=== PATIENT | male | born 1985 | race Caucasian/White ===

== ENCOUNTER 2018-04-07 14:39 | Emergency (ER) | payer OTHER ==
[~2018-04-07] VITALS: Ht 175.3 cm; Wt 52.2 kg
[~2018-04-07 14:39] MED LIST: BENZ2TAB27 PO; DIVA250T PO; FAMO-90 PO; KEP500 PO; METO50TE PO; RISP2TAB PO; SERT100T PO; TRAZ-289 PO; [UNRECOGNIZED DRUG - CODE] TP
[2018-04-07 14:44] VITALS: BP 103/71
--- NOTE | 2018-04-07 14:48 | NUR ---
WHEEL CHAIR ASSISTED BY MILL ROLL OPERATOR TO BED 1
--- NOTE | 2018-04-07 15:00 | NUR ---
ASSUMED CARE OF PT AT THIS TIME. C/O INTERMITTENT N/V X 6 DAYS. SKIN IS PALE/WARM/DRY; LUNGS CLEAR BL; HR EVEN AND REGULAR; PT DENIES ANY FEVER, CP, SOB, OR COUGH AT THIS TIME; PATIENT STATES PAIN OF 1/10 AT THIS TIME; VSS; PATIENT POSITIONED FOR COMFORT; HOB ELEVATED; BEDRAILS UP X2; BED DOWN. ER MD MADE AWARE OF PT STATUS. WILL CONTINUE TO MONITOR.
[2018-04-07 16:26] LABS: BASOPHILS % (AUTO) 0.3 % (0.0-2.0); EOSINOPHILS # (AUTO) 0.3 K/uL (0-0.4); EOSINOPHILS % (AUTO) 3.2 % (0.0-4.0); HEMATOCRIT 42.3 % (36-52); HEMOGLOBIN 14.3 g/dL (12.0-18.0); LYMPHOCYTES # (AUTO) 1.2 K/uL (2.0-11.5); LYMPHOCYTES % (AUTO) 11.4 % (20.5-51.1); MEAN CORPUSCULAR HEMOGLOBIN 32 pg (27-31); MEAN CORPUSCULAR HGB CONC 34 g/dL (33-37); MEAN CORPUSCULAR VOLUME 94.1 fL (80-94); MONOCYTES % (AUTO) 9.5 % (1.7-9.3); NEUTROPHILS # (AUTO) 8.2 K/uL (1.8-7.7); NEUTROPHILS % (AUTO) 75.6 % (42.2-75.2); PLATELET COUNT (AUTO) 196 K/uL (140-450); RED BLOOD CELL COUNT(AUTO) 4.49 MIL/uL (4.20-6.10); RED CELL DISTRIBUTION WIDTH 13.1 % (11.6-13.7); WHITE BLOOD COUNT (AUTO) 10.8 K/uL (4.8-10.8)
[2018-04-07 16:35] LABS: ANION GAP 11.9 (8-16); CARBON DIOXIDE 31.4 mmol/L (21-32); CREATININE 0.9 mg/dL (0.7-1.3); POTASSIUM 4.3 mmol/L (3.5-5.1)
[2018-04-07 16:41] LABS: ALBUMIN 3.6 g/dL (3.4-5.0); TOTAL BILIRUBIN 0.6 mg/dL (0.0-1.0)
[2018-04-07 19:10] VITALS: BP 130/86
--- NOTE | 2018-04-07 19:10 | NUR ---
Patient discharged with v/s stable. Written and verbal after care instructions given and explained. Patient alert, oriented and verbalized understanding of instructions. Wheel Chair Assisted with by caregiver. All questions addressed prior to discharge. ID band removed. Patient advised to follow up with PMD. Rx of ZOFRAN, PROMETHAZINE, AND AZITHROMYCIN given. Patient educated on indication of medication including possible reaction and side effects. Opportunity to ask questions provided and answered.
== END 2018-04-07 19:10 | disposition home or self-care (01) ==
LOC: MED 14:39
DX: A08.4 Viral intestinal infection, unspecified (principal); J06.9 Acute upper respiratory infection, unspecified
CPT/HCPCS: 36415; 71045; 80053; 85025; 87804; 99285; Q0092

== ENCOUNTER 2019-01-21 10:01 | Inpatient (IN) | payer OTHER ==
[2019-01-21] VITALS (46 sets, daily range): BP systolic 33–164; BP diastolic 19–108
[~2019-01-21] VITALS: Ht 175.3 cm; Wt 64.9 kg
[~2019-01-21 10:01] MED LIST changes: -TRAZ-289 PO; +TRAZ100T99 PO
--- NOTE | 2019-01-21 10:06 | NUR ---
PT TAKEN TO BED 5 VIA WHEELCHAIR
--- NOTE | 2019-01-21 10:10 | NUR ---
DR. JONES AT BEDSIDE TO INSERT CENTRAL LINE, YANELI FROM ULTRASOUND ALSO PRESENT AT BEDSIDE TO BEGIN PROCEDURE. Addendum: 01/21/19 at 2237 by Kaci Garcia RN INCORRECT TIME ENTRY, CORRECT TIME 2210.
--- NOTE | 2019-01-21 10:21 | NUR ---
BIB SELLING SPECIALIST FROM [facility] WITH C/O COUGH AND SOB SINCE MONDAY, WORSENING TODAY. VSS; PATIENT POSITIONED FOR COMFORT; HOB ELEVATED; BEDRAILS UP X2; BED DOWN. ER MD MADE AWARE OF PT STATUS.
--- NOTE | 2019-01-21 11:06 | NUR ---
Patient being evaluated by physician at bedside.
[2019-01-21] MEDS ORDERED: NACL 0.9% 500 ML IV SCH (11:07)
--- NOTE | 2019-01-21 11:07 | NUR ---
CALLED RT FOR TREATMENT AND ABG
[2019-01-21] MEDS ORDERED: ALBUTEROL 0.083% 2.5 MG/3 ML NEBU INH ONE ×2 (11:10→11:40)
[2019-01-21] MEDS ORDERED: IPRATROPIUM 0.02% 0.5 MG/2.5 ML NEBU INH ONE (11:10)
--- NOTE | 2019-01-21 11:53 | NUR ---
XRAY AT BEDSIDE
[2019-01-21] MEDS ORDERED: PIPERACILLIN/TAZOBACTAM 3.375 GM in DEXTROSE 5% 50 ML IV ONE (12:05)
[2019-01-21] MEDS ORDERED: VANCOMYCIN 1,000 MG in DEXTROSE 5% 250 ML IV ONE (12:05)
[2019-01-21 12:10] LABS: EOSINOPHILS % (AUTO) 0.1 % (0.0-4.0); LYMPHOCYTES # (AUTO) 0.2 K/uL (2.0-11.5); LYMPHOCYTES % (AUTO) 2.7 % (20.5-51.1); MEAN CORPUSCULAR HEMOGLOBIN 31 pg (27-31); MEAN CORPUSCULAR HGB CONC 33 g/dL (33-37); MEAN CORPUSCULAR VOLUME 93.9 fL (80-94); MONOCYTES # (AUTO) 0.3 K/uL (0.8-1.0); NEUTROPHILS # (AUTO) 8.5 K/uL (1.8-7.7); NEUTROPHILS % (AUTO) 94.2 % (42.2-75.2); PLATELET COUNT (AUTO) 85 K/uL (140-450); RED BLOOD CELL COUNT(AUTO) 4.47 MIL/uL (4.20-6.10); RED CELL DISTRIBUTION WIDTH 13.5 % (11.6-13.7)
[2019-01-21 12:13] LABS: PROTHROMBIN TIME 11.2 secs (10.8-13.4)
[2019-01-21] MEDS ORDERED: NACL 0.9% 1,000 ML IV SCH ×3 (12:16→14:55)
[2019-01-21] MEDS ORDERED: HYDROcodone/APAP 5/325 MG 1 TAB TAB PO PRN (12:20)
[2019-01-21] MEDS ORDERED: ACETAMINOPHEN 325 MG TAB PO PRN (12:20)
[2019-01-21] MEDS ORDERED: ALBUTEROL 0.083% 2.5 MG/3 ML NEBU IH PRN (12:20)
[2019-01-21] MEDS ORDERED: ONDANSETRON 4 MG/2 ML VIAL IVP PRN (12:20)
[2019-01-21] MEDS ORDERED: VANCOMYCIN PER PHARMACY MC PRN (12:20)
[2019-01-21] MEDS ORDERED: MORPHINE SULFATE 2 MG/ML SYR IVP PRN (12:20)
[2019-01-21] MEDS ORDERED: LORazepam 2 MG/ML VIAL IVP PRN (12:20)
[2019-01-21 12:29] LABS: BILIRUBIN,URINE NEGATIVE (NEGATIVE); BLOOD, URINE NEGATIVE (NEGATIVE); UGLUCOSE NEGATIVE (NEGATIVE)
[2019-01-21 12:30] LABS: ALBUMIN 2.7 g/dL (3.4-5.0); ANION GAP 13.2 (8-16); CARBON DIOXIDE 30.1 mmol/L (21-32); CREATININE 1.1 mg/dL (0.7-1.3); POTASSIUM 3.3 mmol/L (3.5-5.1); TOTAL BILIRUBIN 0.3 mg/dL (0.0-1.0)
[2019-01-21 12:30] LABS: COLOR,URINE ORANGE (YELLOW)
[2019-01-21 12:36] LABS: NITRITE, URINE NEGATIVE (NEGATIVE)
[2019-01-21 12:37] LABS: RBC,URINE 0-5 (RARE) /HPF (0-5)
[2019-01-21 12:38] LABS: APPEARANCE,URINE SLIGHTLY HAZY (CLEAR)
[2019-01-21 12:39] LABS: HYALINE CASTS, URINE 0-10 /LPF (None Seen); LEUKOCYTE ESTERASE ,URINE 1+ (NEGATIVE)
[2019-01-21] MEDS ORDERED: PIPERACILLIN/TAZOBACTAM 3.375 GM VIAL IV ONE (12:40)
[2019-01-21] MEDS ORDERED: VANCOMYCIN 1,000 MG VIAL ONE (12:41)
[2019-01-21] MEDS ORDERED: methylPREDNISolone SS 125 MG/2 ML VIAL IVP SCH (13:16)
--- NOTE | 2019-01-21 13:22 | NUR ---
SPOKE TO PAM, CHARGE NURSE RE: BP 70/37 AND LACTIC ACID 4.1 NURSE PAM WILL NOTIFY DR. SALEEM WHO IS ICU RIGHT NOW BUT IS ON THE PHONE. PRIMARY NURSE JOBANA AWARE
--- NOTE | 2019-01-21 13:33 | NUR ---
PT TAKEN TO ICU BY RN KENYETTA, EMT DONNA, AND RT STAFF
--- NOTE | 2019-01-21 13:35 | NUR ---
PT TRANSFERRED FROM ER TO ICU. PT IS NONVERBAL, UNABLE TO FOLLOW COMMANDS. SINUS RHYTHM ON MONITOR. PT IS ON BIPAP 10/5, FIO2 100%, CRACKLES AUSCULTATED BILATERALLY. BREATHING EVEN, LABORED. ABD SOFT, NONDISTENDED W/ ACTIVE BOWEL SOUNDS. PERIPHERAL IV G20 TO LEFT FOREARM PATENT AND INTACT. PT IS RECEIVING VANCOMYCIN AT 165ML/HR UPON ARRIVAL. SKIN IS INTACT, DRY AND COOL TO TOUCH. HOB 30 DEGREES, BED IN LOWEST POSITION AND CALL LIGHT WITHIN REACH. SAFETY PRECAUTIONS IN PLACE. FLACC 0. WILL CONTINUE TO MONITOR.
--- NOTE | 2019-01-21 13:40 | NUR ---
Patient will be admitted to care of DR. SALEEM. Admited to ICU. Will go to room 2. Belongings list completed. Report to GAGE PEDERSEN.
--- NOTE | 2019-01-21 14:05 | NUR ---
PT INTUBATED BY DR. SALEEM AT BEDSIDE.
[2019-01-21] MEDS ORDERED: PROPOFOL 1000 MG/100 ML PREMIX 100 ML IV PRN (14:15)
--- NOTE | 2019-01-21 14:15 | NUR ---
NGT INSERTED. PLACEMENT CONFIRMED VIA AUSCULTATION.
[2019-01-21] MEDS ORDERED: NOREPINEPHRINE 4 MG/4 ML VIAL IV ONE ×2 (14:24→18:07)
--- NOTE | 2019-01-21 14:24 | NUR ---
LEVOPHED STARTED AT 5 MCG/KG/MIN.
--- NOTE | 2019-01-21 14:30 | NUR ---
HERNÁNDEZ CATH INSERTED. CLEAR, DARK YELLOW URINE NOTED, DRAINING TO GRAVITY.
--- NOTE | 2019-01-21 15:21 | NUR ---
PT ON AC/PC Pinsp 25, PEEP 14, FIO2 100% AND INSP TIME 0.80. ETT 7.5 SECURED @25 TEETH/GUMS. PT IS SEDATED AT THIS TIME TOLERATING VENT SETTINGS WELL. THERE IS NO BITING OR KINKING OF ETT. VENT IS PLUGGED INTO A RED OUTLET WITH ALARMS ON AND FUNCTIONING. WILL CONTINUE TO MONITOR.
--- NOTE | 2019-01-21 15:35 | NUR ---
RECEIVED FNS CONSULT FOR TUBE FEEDING. RECOMMENDATIONS OF JEVITY @65ML/HR WITH FREE WATER FLUSH 100 ML Q4H GIVEN TO RN. KAREN RODRIGUES RD
--- NOTE | 2019-01-21 15:44 | NUR ---
PAGED REGARDING CRITICAL ABG RESULTS. WAITING FOR CALL BACK.
[2019-01-21] MEDS: MIDAZOLAM 2 MG/2 ML VIAL IV PRN (15:45)
[2019-01-21] MEDS: LEVOFLOXACIN 750 MG/D5W PREMIX 150 ML IV SCH (16:52)
[2019-01-21] MEDS ORDERED: ETOMIDATE 20 MG/10 ML VIAL IVP SCH (16:55)
[2019-01-21] MEDS ORDERED: SUCCINYLCHOLINE CHLORIDE 200 MG/10 ML VIAL IVP SCH (16:56)
--- NOTE | 2019-01-21 17:24 | NUR ---
DR. SALEEM MADE AWARE OF PT'S DECREASED BLOOD PRESSURE DESPITE LEVOPHED BEING AT MAXIMUM RATE AND REPORTED ABG RESULTS. ORDERS RECEIVED.
[2019-01-21] MEDS ORDERED: SODIUM BICARBONATE 8.4% 100 MEQ in DEXTROSE 5% 1,000 ML IV SCH (17:25)
--- NOTE | 2019-01-21 17:30 | NUR ---
PT REMAINS ON DOCUMENTED VENT SETTINGS. ETT REMAINS SECURE WITH A PATENT AIRWAY. VENT ALARMS REMAIN ON AND FUNCTIONING. PT NOT IN ANY DISTRESS AT THIS TIME.
[2019-01-21] MEDS ORDERED: SODIUM BICARBONATE 8.4% PFS 50 MEQ/50 ML SYR IVP ONE (18:05)
[2019-01-21] MEDS ORDERED: EPINEPHrine PFS 0.1 MG/ML SYR IVP ONE ×2 (18:05→21:32)
[2019-01-21] MEDS ORDERED: DEXTROSE 50% 50 ML SYR IVP ONE (18:05)
[2019-01-21] MEDS ORDERED: CALCIUM CHLORIDE 10% 100 MG/ML SYR IVP ONE (18:05)
--- NOTE | 2019-01-21 18:05 | NUR ---
HR 31, PULSE NOT PALPABLE. CALLED CODE BLUE.
--- NOTE | 2019-01-21 18:07 | NUR ---
SECOND BAG LEVOPHED STARTED AT 30 MCG/MIN.
[2019-01-21] MEDS: ATROPINE 0.4 MG/ML VIAL IVP PRN ×4 (18:30→23:10)
[2019-01-21] MEDS: ALBUTEROL SULFATE/IPRATROPIU 3 ML SOL IH SCH (18:42)
[2019-01-21] MEDS: SODIUM BICARBONATE 8.4% 150 MEQ in DEXTROSE 5% 1,000 ML IV SCH (18:47)
[2019-01-21] MEDS: VASOPRESSIN 20 UNITS in NACL 0.9% 250 ML IV SCH (18:47)
[2019-01-21] MEDS: PIPERACILLIN/TAZOBACTAM 4.5 GM in DEXTROSE 5% 100 ML IV SCH (18:50)
[2019-01-21] MEDS: methylPREDNISolone SS 125 MG/2 ML VIAL IVP SCH (18:50)
--- NOTE | 2019-01-21 19:05 | NUR ---
Received pt coding at change of shift, pulse regained, suctioned scant amounts of thin yellow blood tinged secretions, hhn tx given, tolerated well, no resp distress or SOB noted at this time, alarms set and audible, ambu bag at bedside, vent plugged into red outlet, pulse ox on, will cont to monitor.
[2019-01-21] MEDS: PHENYLEPHRINE 10 MG in NACL 0.9% 250 ML IV PRN ×3 (19:06→23:46)
[2019-01-21] MEDS ORDERED: HYDROCORTISONE NA SUCC 100 MG/2 ML VIAL IV ONE (19:13)
--- NOTE | 2019-01-21 19:25 | NUR ---
HR 33. ATROPINE GIVEN ORDERED.
--- NOTE | 2019-01-21 19:30 | NUR ---
REPORT GIVEN TO PIPE ORGAN TUNER AND REPAIRER NURSE FOR CONTINUITY OF CARE. PT IS UNSTABLE AT THIS TIME.
--- NOTE | 2019-01-21 19:30 | NUR ---
RECEIVED BEDSIDE REPORT FROM MORNING SHIFT RNSASHA, FOR CONTINUITY OF CARE. PT IS ETT TO VENT, NONVERBAL. AFEBRILE, BP=46/28, SATING 69%, RR=18, KU=215. ON A/C PC TNW8=268%, Pinsp=25, Tinsp=.80, peep=14, PMAX =45. RIGHT FA 20 GAUGE, RIGHT WRIST 20 GAUGE, AND LEFT FA 20 GUAGUE, AND LEFT WRIST 18 GAUGE ARTERIAL LINE. INFUSING LEVOPHED AT 30MCG/MIN, VASOPRESSINAT 30ML/HR, PROPOFOL AT 9.3ML/R RASS-3 TO -4. SODIUM BICARB W/ D5 INFUSING AT 75ML/HR. Addendum: 01/22/19 at 0330 [address] Garcia RN ST ON CARIDAC MONITOR, NPO STATUS MAINTIANED, NGT IN PLACE. LUNG SOUNDS CLEAR ON AUSCULTATION, BOWEL SOUND HYPOACTIVE. HERNÁNDEZ REMAINS IN PLACE. SKIN IS NORMAL IN COLOR, COOL TO TOUCH. HOB ELEVATED, STANDARD, AND FALL RISK PRECAUTIONS MAINTAINED. Addendum: 01/22/19 at 0738 by Kaci Garcia RN DRY WEIGHT OF 57 KG FOR PROPOFOL DRIP. Addendum: 01/22/19 at 2202 by Kaci Garcia RN CORRECTION: DRY WEIGHT FOR PATIENT IS 62KG FOR PROPOFOL DRIP.
[2019-01-21] MEDS ORDERED: ATROPINE 1 MG/10 ML SYR IVP ONE ×2 (20:16→20:43)
--- NOTE | 2019-01-21 20:20 | NUR ---
10 ML ATROPINE GIVEN, HR 37-38. Addendum: 01/21/19 at 2024 by Kaci Garcia RN CORRECTION: 10ML = 1MG ATROPINE WAS GIVEN.
[2019-01-21] MEDS ORDERED: ATROPINE 0.4 MG/ML VIAL IVP ONE (20:41)
[2019-01-21] MEDS: levETIRAcetam 500 MG TAB PO SCH (21:00)
[2019-01-21] MEDS: traZODone 50 MG TAB PO SCH (21:00)
[2019-01-21] MEDS ORDERED: DIVALPROEX SODIUM 250 MG PO SCH (21:00)
[2019-01-21] MEDS: FAMOTIDINE 20 MG TAB PO SCH (21:00)
[2019-01-21] MEDS ORDERED: NON-FORMULARY ITEM (Trazodone HCl 100 MG) PO SCH (21:00)
[2019-01-21] MEDS ORDERED: METOPROLOL SUCCINATE 50 MG PO SCH (21:00)
[2019-01-21] MEDS: DIVALPROEX 250 MG TABEC PO SCH (21:00)
[2019-01-21] MEDS ORDERED: SERTRALINE 50 MG TAB PO SCH (21:00)
[2019-01-21] MEDS: METOPROLOL 50 MG TAB PO SCH (21:00)
[2019-01-21] MEDS: NOREPINEPHRINE 4 MG in DEXTROSE 5% 250 ML IV PRN (21:24)
[2019-01-21] MEDS ORDERED: EPINEPHrine 1:1000 - 1 MG/ML AMP ONE (21:30)
--- NOTE | 2019-01-21 22:10 | NUR ---
AT [facility], AND YANELI FROM ULTRASOUND AT BEDSIDE FOR CENTRAL LINE PLACEMENT. TIMEOUT COMPLETED.
--- NOTE | 2019-01-21 22:38 | NUR ---
XRAY AT BEDSIDE TO CHECK FOR CENTRAL LINE PLACEMENT.
--- NOTE | 2019-01-21 22:40 | NUR ---
PAGED DR. JONES REGARDS TO CENTRAL LINE PLACEMENT/XRAY COMPLETED
--- NOTE | 2019-01-21 23:00 | NUR ---
NEOSYNEPHRINE STOPPED AT THIS TIME, SD=229/65, SATING 72%, 22 RPM, HR=92.
--- NOTE | 2019-01-21 23:01 | NUR ---
DEENA WOLF AT BEDSIDE TO SEE PATIENT.
--- NOTE | 2019-01-21 23:03 | NUR ---
CALLED DR. STORM, UPDATED ON PT CONDITION AND CENTRAL LINE PLACEMENT. NEOSYNEPHRINE STOPPED AT THIS TIME, PT REMAINS ON LEVOPHED, PROPOFOL, AND VASPORESSIN, NPO STATUS MAINTAINED. INFORMED HELD ALL 2100 PO MEDS AT THIS TIME. DR. TUTTLE. NO NEW ORDERS AT THIST AR.
[2019-01-21] MEDS ORDERED: PHENYLEPHRINE 10 MG/ML VIAL ONE (23:35)
[2019-01-22] VITALS (71 sets, daily range): BP systolic 36–163; BP diastolic 23–78
[2019-01-22] MEDS: NOREPINEPHRINE 4 MG in DEXTROSE 5% 250 ML IV PRN ×5 (00:05→10:22)
--- NOTE | 2019-01-22 00:26 | NUR ---
PAGED DR. JONES TO CONFIRM CENTRAL LINE PLACEMENT/ RESULTS OF XRAY.
[2019-01-22] MEDS: ALBUTEROL SULFATE/IPRATROPIU 3 ML SOL IH SCH ×3 (01:11→12:54)
[2019-01-22] MEDS: PHENYLEPHRINE 10 MG in NACL 0.9% 250 ML IV PRN ×5 (01:25→08:12)
[2019-01-22] MEDS ORDERED: PHENYLEPHRINE 10 MG/ML VIAL ONE ×4 (01:26→06:58)
[2019-01-22] MEDS: HYDROCORTISONE NA SUCC 100 MG/2 ML VIAL IV SCH ×3 (01:30→11:51)
[2019-01-22] MEDS: methylPREDNISolone SS 125 MG/2 ML VIAL IVP SCH ×3 (01:31→11:51)
[2019-01-22] MEDS: PIPERACILLIN/TAZOBACTAM 4.5 GM in DEXTROSE 5% 100 ML IV SCH ×3 (01:31→11:53)
[2019-01-22] MEDS ORDERED: ATROPINE 1 MG/10 ML SYR IVP ONE ×2 (02:07→04:50)
[2019-01-22] MEDS: ATROPINE 0.4 MG/ML VIAL IVP PRN ×2 (02:08→04:46)
[2019-01-22] MEDS ORDERED: NOREPINEPHRINE 4 MG/4 ML VIAL IV ONE ×3 (02:36→07:53)
[2019-01-22] MEDS ORDERED: VASOPRESSIN 20 UNITS/ML VIAL ONE (02:44)
[2019-01-22] MEDS: VASOPRESSIN 20 UNITS in NACL 0.9% 250 ML IV SCH ×2 (02:54→11:50)
[2019-01-22] MEDS: EPINEPHrine 1:1000 (1 mg/mL) 1 MG in DEXTROSE 5% 250 ML IV SCH ×3 (03:01→09:04)
--- NOTE | 2019-01-22 03:23 | NUR ---
RIGHT IJ CENTRAL LINE IN PLACE WITH PRESSORS INFUSING: PT MAXED OUT ON NEOSYNEPHRINE, LEVOPHED AND VASOPRESSIN DRIPS, SODIUM BICARB&D5 IVF REMINAS INFUSING INTO RIGHT FOREARM 20 GAUGE PIV AT 75ML/HR. FAMILY NO LONGER AT BEDSIDE. PUPILS ENLARGED NOT REACTIVE TO LIGHT. EPINEPHRINE INFUSING AT 3MCG/MIN CURRENTLY. PROPFOL INFUSING TO RIGHT IJ AT 25MCG/KG/MIN. HR=80, ARTERIAL BP=66/55, LEFT ARM BP=53/55, RR=18, SATING AT 64%.
--- NOTE | 2019-01-22 06:18 | NUR ---
rec'd pt on carescape vent settings pc25 rr 18 peep 14 fio2 100% alarms on and audible ambu bag at side of vent and vent is plugged into red outlet, i\l tx given wit duoneb 3ml with no adverse reaction post tx b\s are clear bilaterally, sxn pt small amt of thick yellow secretions, pt is orally intubated with 7.5 et tube secured with anchor fast at 25cm @lip skin integrity is intact.
[2019-01-22] MEDS ORDERED: EPINEPHrine 1:1000 - 1 MG/ML AMP ONE (06:20)
[2019-01-22 06:25] LABS: BASOPHILS % (AUTO) 0.1 % (0.0-2.0); EOSINOPHILS % (AUTO) 0.3 % (0.0-4.0); HEMATOCRIT 37.5 % (36-52); HEMOGLOBIN 12.4 g/dL (12.0-18.0); LYMPHOCYTES # (AUTO) 0.7 K/uL (2.0-11.5); LYMPHOCYTES % (AUTO) 10.2 % (20.5-51.1); MEAN CORPUSCULAR HEMOGLOBIN 32 pg (27-31); MEAN CORPUSCULAR HGB CONC 33 g/dL (33-37); MONOCYTES # (AUTO) 0.5 K/uL (0.8-1.0); MONOCYTES % (AUTO) 6.7 % (1.7-9.3); NEUTROPHILS # (AUTO) 5.9 K/uL (1.8-7.7); NEUTROPHILS % (AUTO) 82.7 % (42.2-75.2); PLATELET COUNT (AUTO) 71 K/uL (140-450); RED BLOOD CELL COUNT(AUTO) 3.91 MIL/uL (4.20-6.10); RED CELL DISTRIBUTION WIDTH 13.9 % (11.6-13.7); WHITE BLOOD COUNT (AUTO) 7.2 K/uL (4.8-10.8)
[2019-01-22 06:37] LABS: ALBUMIN 1.4 g/dL (3.4-5.0); ANION GAP 21.5 (8-16); CARBON DIOXIDE 19.3 mmol/L (21-32); CREATININE 1.4 mg/dL (0.7-1.3); MAGNESIUM 1.5 mg/dL (1.8-2.4); TOTAL BILIRUBIN 0.6 mg/dL (0.0-1.0)
--- NOTE | 2019-01-22 07:20 | NUR ---
REPORT GIVEN TO MORNING RNPETER FOR CONTINUITY OF CARE.
--- NOTE | 2019-01-22 07:21 | NUR ---
RECEIVED PT REPORT AT BEDSIDE FROM WARP HAULER RN, PT IS SEDATED, RASS -5, DILATED EYES NOTED, TEMP 95.2F, BP 98/73, HR 81, R 18, O2 SAT 62%, ETT TO VENT WITH A/C PC SETTING FIO2 100, PEEP 14, R 18, CLEAR LUNG SOUNDS IRAM, SR ON SUPERVISOR [employer], WEAK PULSES TO EXTREMITIES, SOFT ABDOMEN WITH HYPOACTIVE BOWEL SOUNDS, NGT TO RIGHT NARES, POSITIVE PLACEMENT, >200ML RESIDUALS NOTED, NPO AT THIS TIME. F/C IN PLACE WITH CLEAR YELLOW URINE VIA GRAVITY, SKIN IS COOL AND PALE, INTACT, SEVERE WEAKNESS TO ALL EXTREMITIES, CENTRAL LINE TO RIJ, TLC, PATENT RUNNING VASOPRESSIN AT 0.04 UNIT/MIN, EPINEPHRINE AT 10 MCG/MIN, MARCE AT 150MCG/MIN, PROPOFOL AT 25 MCG/KG/MIN, AND LEVOPHED AT 30 MCG/MIN, PERIPHERAL LINE TO RIGHT FOREARM 20GA RUNNING BICAB AT 75ML/HR, IV TO LEFT FOREARM 18GA, RUNNING ANTIBIOTICS, NEERU AT LEFT WRIST 106/72. HOB ELEVATED 30 DEGREES, SAFETY MEASURES IN PLACE, ORAL CARE PROVIDED, POSITION CHANGED FOR OFF LOAD PRESSURE, WILL CONTINUE TO MONITOR. Addendum: 01/22/19 at 1653 by Carlos Martinez RN PT DRY WEIGHT IS 62KG.
[2019-01-22] MEDS ORDERED: VANCOMYCIN 500 MG in DEXTROSE 5% 100 ML IV SCH (08:00)
--- NOTE | 2019-01-22 08:00 | NUR ---
CALLED DR. HUNT TO GIVE ABG RESULTS ORDERED TO INCREASE RR TO 22 AND ABG AT 0600 NUVIA GREEN NOTIFIED OF CHANGES MADE TO VENT
--- NOTE | 2019-01-22 08:15 | NUR ---
IV SITE TO RIGHT FORARM INFILTRATED, AND REDNESS TO THE SITE, REMOVED, AND PLACED NEW IV SITE TO RIGHT SHOULDER, 20GA, PATENT AND SL.
--- NOTE | 2019-01-22 08:23 | NUR ---
PATIENT HAS BEEN SCREENED AND CATEGORIZED HIGH NUTRITION RISK. PATIENT WILL BE SEEN WITHIN 1-2 DAYS OF ADMISSION. 01/22/19-01/23/[address]
[2019-01-22] MEDS: SODIUM BICARBONATE 8.4% 150 MEQ in DEXTROSE 5% 1,000 ML IV SCH (08:50)
[2019-01-22] MEDS ORDERED: ASPIRIN 81 MG TAB.CHEW PO SCH (09:00)
[2019-01-22] MEDS ORDERED: risperiDONE 1 MG TAB PO SCH (09:00)
[2019-01-22] MEDS: METOPROLOL 50 MG TAB PO SCH (09:00)
[2019-01-22] MEDS ORDERED: BENZTROPINE 1 MG TAB PO SCH (09:00)
--- NOTE | 2019-01-22 09:00 | NUR ---
CASSANDRA RAZA PLACED ON PT TO KEEP PT WARM.
[2019-01-22 09:01] LABS: POTASSIUM 2.8 mmol/L (3.5-5.1)
[2019-01-22] MEDS ORDERED: POTASSIUM CHLORIDE 20% 40 MEQ/15 ML UDC GT SCH ×2 (09:03→13:00)
[2019-01-22] MEDS ORDERED: NOREPINEPHRINE 16 MG in DEXTROSE 5% 250 ML IV PRN (09:10)
[2019-01-22] MEDS ORDERED: PHENYLEPHRINE 40 MG in NACL 0.9% 250 ML IV PRN (09:10)
[2019-01-22] MEDS ORDERED: EPINEPHrine 1:1000 (1 mg/mL) 6 MG in DEXTROSE 5% 250 ML IV SCH (09:10)
[2019-01-22] MEDS: DIVALPROEX 250 MG TABEC PO SCH (09:13)
[2019-01-22] MEDS: levETIRAcetam 500 MG TAB PO SCH (09:13)
[2019-01-22] MEDS: FAMOTIDINE 20 MG TAB PO SCH (09:13)
[2019-01-22] MEDS: traZODone 50 MG TAB PO SCH (09:15)
[2019-01-22] MEDS: ENOXAPARIN 40 MG/0.4 ML SYR SUBQ SCH ×2 (09:17→09:24)
--- NOTE | 2019-01-22 09:20 | NUR ---
DR. SALEEM CAME IN TO SEE PT AT BEDSIDE, UPDATED PT'S CONDITION, WILL FOLLOW UP WITH NEW ORDERS.
--- NOTE | 2019-01-22 09:24 | NUR ---
METOPROLOL AND LOVENOX HELD DUE TO LOW BP AND LOW PLATELET, MD AWARE.
--- NOTE | 2019-01-22 10:00 | NUR ---
ARM AND LEG MOVEMENT NOTED, BUT UNABLE TO RESPOND TO PAINFUL STIMULI, STILL ON LEVOPHED, MARCE, VASOPRESSIN, AND EPI DRIP. POSITION CHANGED FOR OFF LOAD PRESSURE.
--- NOTE | 2019-01-22 11:00 | NUR ---
PT'S FATHER CALLED, ALTHOUGH PT IS ON DNR, BUT FATHER STILL WANT TO KEEP ALL THE MEDICATIONS UNTIL THEY COME TO HIM LATER. AWARE.
--- NOTE | 2019-01-22 11:12 | NUR ---
ECHO AND BOBBLE STUDY AT BEDSIDE.
[2019-01-22] MEDS ORDERED: POTASSIUM CHLORIDE 10 MEQ TABER PO ONE (12:00)
--- NOTE | 2019-01-22 12:00 | NUR ---
PT IS STILL UNRESPONSIVE, ORAL CARE PROVIDED, POSITION CHANGED FOR OFF LOAD PRESSURE.
[2019-01-22] MEDS: MIDAZOLAM 2 MG/2 ML VIAL IV PRN ×2 (13:18→17:04)
--- NOTE | 2019-01-22 13:18 | NUR ---
SL. RESTLESS. MOVING HEAD SIDE TO SIDE. DOES NOT FOLLOW COMMANDS. VERSED 2 MG IVP GIVEN. REPOSITIONED.
--- NOTE | 2019-01-22 13:30 | NUR ---
SEDATED. ETT TO VENT. 02 SAT 70%
--- NOTE | 2019-01-22 14:00 | NUR ---
NO CHANGE OF CONDITION, FLACC 0, POSITION CHANGED FOR OFF LOAD PRESSURE.
--- NOTE | 2019-01-22 14:15 | NUR ---
PT'S PARENTS HERE TO SEE PT, UPDATED PT'S CONDITION, THEY WOULD LIKE TO TALK TO , DR. STIVEN FLORES.
--- NOTE | 2019-01-22 14:50 | NUR ---
PATIENT'S BROTHER, MOTHER AND FATHER AT BEDSIDE. WANTS TO TALK TO DR. SALEEM. DR. SALEEM PAGED THROUGH HIS EXCHANGE
[2019-01-22] MEDS ORDERED: MORPHINE SULFATE 2 MG/ML SYR IVP PRN (15:00)
--- NOTE | 2019-01-22 15:00 | NUR ---
DR. SALEEM CALLED BACK SPOKE TO PT'S MOTHER OVER THE PHONE.
--- NOTE | 2019-01-22 15:05 | NUR ---
SPOKE TO DR. SALEEM. FAMILY AGREED FOR COMFORT MEASURES ONLY. GAVE ORDERS.
[2019-01-22] MEDS: LEVOFLOXACIN 750 MG/D5W PREMIX 150 ML IV SCH (15:19)
[2019-01-22] MEDS ORDERED: MORPHINE SULFATE 50 MG in NACL 0.9% 45 ML IV PRN (16:10)
[2019-01-22] MEDS ORDERED: MORPHINE SULFATE 500 MG in NACL 0.9% 500 ML IV PRN (16:15)
--- NOTE | 2019-01-22 17:09 | NUR ---
FAMILY AT BEDSIDE RN PETER GAVE VERSED PT IS AGITATED
--- NOTE | 2019-01-22 17:30 | NUR ---
EXTUBATED PT PLACED ON 4LNC SXN PT BY MOUTH MODERATED AMT OF THICK YELLOW SECRETIONS, FAMILY AT BEDSIDE
--- NOTE | 2019-01-22 17:39 | NUR ---
PT HAS NO PULSE, NO BP, EXTUBATED AT 1730, PARK WORKER SUPERVISOR NANCY AT BEDSIDE PRONOUNCED TIME OF AT 1739, FAMILY MEMBERS AT BEDSIDE.
--- NOTE | 2019-01-22 17:52 | NUR ---
CALLED [facility], .
--- NOTE | 2019-01-22 17:55 | NUR ---
INFORMED DR. SALEEM THAT THE TIME OF .
--- NOTE | 2019-01-22 18:04 | NUR ---
ADMITTING LIZZY NOTIFIED FOR THE TIME OF .
--- NOTE | 2019-01-22 19:15 | NUR ---
RECEIVED REPORT FROM MORNING SHIFT RNPETER. WILL FOLLOW-UP WITH CLUB ROOM ATTENDANT.
--- NOTE | 2019-01-22 21:10 | NUR ---
[facility][phone] SPOKE WITH GARETT WILL WAIT FOR CALL BACK.
--- NOTE | 2019-01-22 22:23 | NUR ---
[facility], SPOKE WITH JOEY. STATED THAT WE SHOULD HEAR FROM THEM SHORTLY.
--- NOTE | 2019-01-22 22:37 | NUR ---
RECEIVED CALL BACK FROM [facility] OFFICE, SPOKE WITH SYARA OCONNOR, UPDATED ON PATIENT CONDITION/HISTORY. CATH LAB RADIOLOGICAL TECHNOLOGIST'S .
--- NOTE | 2019-01-22 22:44 | NUR ---
ABAD PACHECO, FROM [facility], STATED TO CALL BACK IN 20 MINUTES FOR UPDATE.
--- NOTE | 2019-01-22 23:00 | NUR ---
CALLED [facility], SPOKE WITH TARA STATED TO CALL BACK IN ANOTHER 15 MINUTES FOR UPDATE ON TIME FOR PATIENT PICKUP.
--- NOTE | 2019-01-22 23:39 | NUR ---
CALLED TARA OF [facility], STATED ESTIMATED ARRIVAL FOR PICKUP WOULD BE 60-90 MINUTES. Addendum: 01/22/19 at 2340 by Kaci Garcia RN UPDATED ON PATIENT CONDITION/INFORMATION.
--- NOTE | 2019-01-23 01:40 | NUR ---
JACKELYN FROM [facility], HERE TO PICKUP BODY AT THIS TIME.
== END 2019-01-22 17:39 | disposition expired | DRG 720 ==
LOC: MED 10:01 → MIC 12:16
PROVIDERS: ADMIT Hospitalist; ATTEND Hospitalist
PROC: 5A1935Z Respiratory Ventilation, Less than 24 Consecutive Hours (ICD-10-PCS; principal; 2019-01-21)
PROC: 0BH17EZ Insertion of Endotracheal Airway into Trachea, Via Natural or Artificial Opening (ICD-10-PCS; 2019-01-21)
PROC: 0BC78ZZ Extirpation of Matter from Left Main Bronchus, Via Natural or Artificial Opening Endoscopic (ICD-10-PCS; 2019-01-21)
PROC: 02HV33Z Insertion of Infusion Device into Superior Vena Cava, Percutaneous Approach (ICD-10-PCS; 2019-01-21)
PROC: B548ZZA Ultrasonography of Superior Vena Cava, Guidance (ICD-10-PCS; 2019-01-21)
PROC: 5A12012 Performance of Cardiac Output, Single, Manual (ICD-10-PCS; 2019-01-21)
DX: A41.9 Sepsis, unspecified organism (principal); R65.21 Severe sepsis with septic shock; J96.01 Acute respiratory failure with hypoxia; J96.02 Acute respiratory failure with hypercapnia; J18.9 Pneumonia, unspecified organism; F73 Profound intellectual disabilities; J45.901 Unspecified asthma with (acute) exacerbation; R13.10 Dysphagia, unspecified; J98.09 Other diseases of bronchus, not elsewhere classified; E87.6 Hypokalemia; F41.9 Anxiety disorder, unspecified; I10 Essential (primary) hypertension; G40.909 Epilepsy, unspecified, not intractable, without status epilepticus; N39.0 Urinary tract infection, site not specified; Y95 Nosocomial condition; Q93.4 Deletion of short arm of chromosome 5; Z74.01 Bed confinement status; Z79.899 Other long term (current) drug therapy
CPT/HCPCS: 36415; 36600; 71045; 76604; 80053; 81001; 82803; 83605; 83735; 83880; 84484; 85025; 85610; 85730; 87040; 87070; 87081; 87086; 87186; 87205; 87804; 89220; 93005; 94003; 94640; 99291; C1751; C1758; J0171; J0461; J1642; J1650; J1720; J1956; J2060; J2250; J2270; J2370; J2543; J2704; J2930; J3370; J3490; J7030; J7060; J7613; J7620; J7644; Q0092